=== PATIENT | female | born 1960 | race Caucasian/White ===

== ENCOUNTER 2016-10-14 10:44 | Emergency (ER) | payer OTHER ==
[~2016-10-14] VITALS: Ht 154.9 cm; Wt 50.0 kg
[~2016-10-14 10:44] MED LIST: DICL75 PO; GABA300 PO; ZOVI400T15 PO
[2016-10-14 10:45] VITALS: BP 150/76; PULSE 96; RESP 20; TEMP 98.6; O2SAT 100
--- NOTE | 2016-10-14 11:10 | PD ---
HPI Chief Complaint: Abdominal Pain Time Seen by Provider: 11:10 Travel History International Travel<30 days: No Contact w/Intl Traveler<30days: No Traveled to known affect area: No History of Present Illness HPI 56-year-old female came to the emergency room with history of right lower quadrant pain that has been there for 6 months but worse for past 3 days. She' s been vomiting. Since that time the pain has started patient has lost about 12 -15 pounds. She went to see her primary care today who examined her and asked to come straight to the emergency room to rule out appendicitis. No history of fever or chills. She seems to be in distress. Vital signs were otherwise stable. Patient says she had a hernia surgery on the right side out 2-3 years ago and had her right ovary taken out about 10 years ago. [facility] Past Medical History Narrative Medical List of her past medical, surgical, social and family history is reviewed from the nursing note. Asthma: Yes Cancer: No Cardiovascular Problems: No Diabetes: No Diverticulitis: Yes Endocrine: No Gastrointestinal Disorders: Yes (GERD; HX ULCER) Genitourinary: No Hepatitis: No Hiatal Hernia: No Hypertension: No Immune Disorder: No Musculoskeletal: Yes (NECK AND BACK PAIN; ARTHRITIS) Neurologic: No Psychiatric: No Reproductive: Yes (HX RIGHT OOPHORECTOMY) Respiratory: Yes (HX ASTHMA) Thyroid Disease: No Menopausal: Yes Ovarian Cysts: Yes (RIGHT OVARY REMOVED) Tubal Ligation: Yes Past Surgical History Abdominal Surgery: Yes Body Medical Devices: BILATERAL BREAST IMPLANTS Gynecologic Surgery: Yes (TUBAL LIGATION; RIGHT OOPHORECTOMY) Oral Surgery: Yes (SINSUS SX) Pacemaker: No Other Surgery: Yes Social History Alcohol Use: No Tobacco Use: Yes (1 pack a day) Substance Use: No Allergies-Medications (Allergen,Severity, Reaction): Coded Allergies: No Known Allergies (Verified , 11/10/15) Comments No known drug allergies. Reported Meds & Prescriptions Reported Meds & Active Scripts Active Diclofenac Sodium 75 Mg Tab 75 Mg PO Q12HR PRN Reported Neurontin (Gabapentin) 300 Mg Cap 300 Mg PO BID Zovirax (Acyclovir) 400 Mg Tab 200 Mg PO BID Narrative Medication List of her home medications reviewed from the nursing note. Review of Systems Except as stated in HPI: all other systems reviewed are Neg Physical Exam Narrative GENERAL: Awake, alert, anxious, moderate distress SKIN: Focused skin assessment warm/dry. HEAD: Atraumatic. Normocephalic. EYES: Pupils equal and round. No scleral icterus. No injection or drainage. ENT: No nasal bleeding or discharge. Mucous membranes pink and moist. NECK: Trachea midline. No JVD. CARDIOVASCULAR: Regular rate and rhythm. No murmur appreciated. RESPIRATORY: No accessory muscle use. Clear to auscultation. Breath sounds equal bilaterally. GASTROINTESTINAL: Right lower quadrant tenderness and guarding. Hepatic and splenic margins not palpable. MUSCULOSKELETAL: No obvious deformities. No clubbing. No cyanosis. No edema. NEUROLOGICAL: Awake and alert. No obvious cranial nerve deficits. Motor grossly within normal limits. Normal speech. PSYCHIATRIC: Appropriate mood and affect; insight and judgment normal. Data Data Last Documented VS Vital Signs Date Time Temp Pulse Resp B/P Pulse Ox O2 Delivery O2 Flow Rate FiO2 10/14/16 13:09 73 15 109/59 98 Room Air 10/14/16 10:45 98.6 Orders Complete Blood Count With Diff (10/14/16 11:31) Comprehensive Metabolic Panel (10/14/16 11:31) Lipase (10/14/16 11:31) Urinalysis - C+S If Indicated (10/14/16 11:31) Ct Abd/Pel W Iv Contrast(Rout) (10/14/16 11:31) Iv Access Insert/Monitor (10/14/16 11:31) Ecg Monitoring (10/14/16 11:31) Oximetry (10/14/16 11:31) Morphine Inj (Morphine Inj) (10/14/16 11:45) Ondansetron Inj (Zofran Inj) (10/14/16 11:45) Sodium Chlor 0.9% 1000 Ml Inj (Ns 1000 M (10/14/16 11:31) Sodium Chloride 0.9% Flush (Ns Flush) (10/14/16 11:45) Iohexol 350 Inj (Omnipaque 350 Inj) (10/14/16 13:42) Labs Laboratory Tests Test 10/14/16 11:40 White Blood Count 14.4 TH/MM3 Red Blood Count 4.57 MIL/MM3 Hemoglobin 14.4 GM/DL Hematocrit 41.8 % Mean Corpuscular Volume 91.5 FL Mean Corpuscular Hemoglobin 31.4 PG Mean Corpuscular Hemoglobin 34.3 % Concent Red Cell Distribution Width 13.2 % Platelet Count 376 TH/MM3 Mean Platelet Volume 8.7 FL Neutrophils (%) (Auto) 75.5 % Lymphocytes (%) (Auto) 19.6 % Monocytes (%) (Auto) 4.1 % Eosinophils (%) (Auto) 0.6 % Basophils (%) (Auto) 0.2 % Neutrophils # (Auto) 10.9 TH/MM3 Lymphocytes # (Auto) 2.8 TH/MM3 Monocytes # (Auto) 0.6 TH/MM3 Eosinophils # (Auto) 0.1 TH/MM3 Basophils # (Auto) 0.0 TH/MM3 CBC Comment DIFF FINAL Differential Comment Urine Color YELLOW Urine Turbidity CLEAR Urine pH 6.0 Urine Specific [place] 1.014 Urine Protein NEG mg/dL Urine Glucose (UA) NEG mg/dL Urine Ketones NEG mg/dL Urine Occult Blood SMALL Urine Nitrite NEG Urine Bilirubin NEG Urine Urobilinogen LESS THAN 2.0 MG/DL Urine Leukocyte Esterase NEG Urine RBC 1 /hpf Urine WBC 1 /hpf Urine Squamous Epithelial <1 /hpf Cells Urine Bacteria RARE /hpf Microscopic Urinalysis Comment CULT NOT INDICATED Sodium Level 140 MEQ/L Potassium Level 3.8 MEQ/L Chloride Level 108 MEQ/L Carbon Dioxide Level 25.1 MEQ/L Anion Gap 7 MEQ/L Blood Urea Nitrogen 16 MG/DL Creatinine 0.64 MG/DL Estimat Glomerular Filtration 96 ML/MIN Rate Random Glucose 88 MG/DL Calcium Level 9.5 MG/DL Total Bilirubin 0.6 MG/DL Aspartate Amino Transf 19 U/L (AST/SGOT) Alanine Aminotransferase 18 U/L (ALT/SGPT) Alkaline Phosphatase 77 U/L Total Protein 7.6 GM/DL Albumin 4.0 GM/DL Lipase 134 U/L [facility] Medical Decision Making Medical Screen Exam Complete: Yes Emergency Medical Condition: Yes Medical Record Reviewed: Yes Differential Diagnosis Acute appendicitis, acute diverticulitis, UTI Narrative Course 11:59 AM in for blood test results, UA and a CAT scan to be done and resulted. Patient has been medicated for pain and nausea. She is getting IV fluid bolus as well. 2:12 PM blood test report is back and patient has leukocytosis. CT abdomen pelvis did not show any appendicitis or any other acute condition. Some biliary dilation with CBD normal. I will discharge her home. Procedures EKG Prior to Arrival: No Diagnosis Primary Impression: acute on chronic abdominal pain Referrals: Primary Care Physician Additional Instructions: Please return to the ER if the condition worsens or any other new concerns. Otherwise follow-up with your primary care. Med/Other Pt SpecificInfo: No Change to Meds Disposition: 01 DISCHARGE HOME Condition: Stable Alexander Bruno MD October 14, 2016 11:10 Alexander Bruno MD October 14, 2016 11:10
[2016-10-14] MEDS ORDERED: SODIUM CHLOR 0.9% 1000 ML INJ 1,000 ML IV SCH (11:31)
[2016-10-14] MEDS ORDERED: MORPHINE SULFATE 4 MG/ML INJ IV PUSH ONE (11:45)
[2016-10-14] MEDS ORDERED: SODIUM CHLORIDE 0.9% FLUSH 10 ML FLUSH IV FLUSH PRN (11:45)
[2016-10-14] MEDS ORDERED: ONDANSETRON HCL 4 MG/2 ML VIAL IVP ONE (11:45)
[2016-10-14 12:01] LABS: AUTOMATED NEUTROPHIL # 10.9 TH/MM3 (1.8-7.7); BASOPHIL % 0.2 % (0.0-2.0); EOSINOPHIL # 0.1 TH/MM3 (0-0.4); EOSINOPHIL % 0.6 % (0.0-4.0); HEMATOCRIT 41.8 % (35.0-46.0); HEMO FLAGS DIFF FINAL; LYMPH % 19.6 % (9.0-44.0); LYMPHOCYTE # 2.8 TH/MM3 (1.0-4.8); MEAN CELL VOLUME 91.5 FL (80.0-100.0); MEAN CORPUSCULAR HEMOGLOBIN 31.4 PG (27.0-34.0); MEAN CORPUSCULAR HGB CONC 34.3 % (32.0-36.0); MONO % 4.1 % (0.0-8.0); NEUT % 75.5 % (16.0-70.0); PLATELET COUNT 376 TH/MM3 (150-450); RED BLOOD COUNT 4.57 MIL/MM3 (4.00-5.30); RED CELL DISTRIBUTION WIDTH 13.2 % (11.6-17.2); WHITE BLOOD COUNT 14.4 TH/MM3 (4.0-11.0)
[2016-10-14 12:10] LABS: BACTERIA, URINE RARE /hpf; BLOOD, URINE SMALL (NEG); COMMENT (UR) CULT NOT INDICATED; CULTURE IF INDICATED CULT NOT INDICATED; GLUCOSE,URINE NEG (NEG); KETONE, URINE NEG (NEG); NITRITE,URINE NEG (NEG); SQUAMOUS EPITHELIAL CELL URINE <1 /hpf (0-5); URINE COLOR YELLOW (YELLW/STRAW)
[2016-10-14 12:27] LABS: ANION GAP 7 MEQ/L (5-15); BICARBONATE 25.1 MEQ/L (21.0-32.0); BLOOD UREA NITROGEN 16 MG/DL (7-18); CHLORIDE 108 MEQ/L (98-107); GLOMERULAR FILTRATION RATE 96 ML/MIN (>89); POTASSIUM 3.8 MEQ/L (3.5-5.1); SODIUM (NA) 140 MEQ/L (136-145)
[2016-10-14 12:31] LABS: ALKALINE PHOSPHATASE 77 U/L (45-117); ALT (GPT) 18 U/L (10-53); AST (GOT) 19 U/L (15-37); TOTAL BILIRUBIN ADULT 0.6 MG/DL (0.2-1.0)
[2016-10-14 13:09] VITALS: BP 109/59; PULSE 73; RESP 15; O2SAT 98
[2016-10-14] MEDS ORDERED: IOHEXOL 350 MG/ML 10 ML VIAL (for RAD DIAG) IV ONE (13:42)
--- NOTE | 2016-10-14 13:54 | RADRPT ---
EXAM DATE/TIME: 10/14/2016 13:30 [place] COMPARISON: No previous studies available for comparison. INDICATIONS : Right lower quadrant pain. IV CONTRAST: 90 cc Omnipaque 350 (iohexol) IV ORAL CONTRAST: No oral contrast ingested. RADIATION DOSE: 9.96 CTDIvol (mGy) MEDICAL HISTORY : Gastroesophageal reflux disease. SURGICAL HISTORY : Tubal ligation. Oophorectomy. ENCOUNTER: Initial ACUITY: 1 week PAIN SCALE: 6/10 LOCATION: Right lower quadrant TECHNIQUE: Volumetric scanning of the abdomen and pelvis was performed. Using automated exposure control and ad justment of the mA and/or kV according to patient size, radiation dose was kept as low as reasonably achievable to obtain optimal diagnostic quality images. FINDINGS: The lung base is are clear. The liver is free of focal defects. The there is mild intrahepatic biliary duct dilatation The liver, spleen, pancreas and adrenals are unremarkable. There is symmetrical renal function There is mild prominence of the uterus suggesting fibroids. There is no free fluid. There is no stefany dence for diverticulitis or appendicitis. Review of bone windows reveals only degenerative changes. CONCLUSION: Very mild intrahepatic biliary duct dilatation with normal common duct. No other suspicious abnormal ities appreciated. Indio Hooker MD FACR on October 14, 2016 at 13:50 Board Certified Radiologist. This report was verified electronically.
== END 2016-10-14 15:03 | disposition home or self-care (01) ==
LOC: NEPD 10:44
DX: R10.31 Right lower quadrant pain (principal)
CPT/HCPCS: 74177; 80053; 81001; 83690; 85025; 96361; 96374; 96375; 99284; J2270; J2405; J7030; Q9967